=== PATIENT | female | born 1945 | race Caucasian/White ===

== ENCOUNTER 2017-01-04 14:08 | Emergency (ER) | payer MEDICARE, OTHER ==
--- NOTE | ~2017-01-04 | CR150 ---
[facility]. [facility] A Service of [facility] & [facility] RADIOLOGY TEXT RESULTS PATIENT: DIANA DIALLO LOCATION: SED : 45 UNIT #: [id number] AGE: [address]: Sharad Adorno MD SEX: F ORDER DR: [id number] [place] [id number] MR#: [id number] Acc #: [id number] NAME: DIANA DIALLO : 1945 SEX: F STUDY DATE/TIME: 01/04/2017 14:05 UNIT: SED ROOM: STUDY DESCRIPTION: CR Hip Min 2 Views Lt Attending Physician: Sharad Adorno M.D. Ordering Physician: Sharad Adorno M.D. Primary Care Physician: Primary Care Physician No MEDICAL IMAGING REPORT This report is preliminary unless electronic signature is present. EXAM AP pelvis and left hip dated 01/04/2017 COMPARISON 02/05/2015 HISTORY Fell 2 days ago at home. Pain entire left hip region. An AP view of the pelvis and oblique view left hip were obtained. Patient has had a bipolar left hip prosthesis placed. Bony elements are intact. Alignment of the prosthesis appears normal and there are no fractures. CONCLUSION Status post left total hip arthroplasty. No acute findings. Dictated by... Wilder Brunner M.D. THIS IS AN ELECTRONICALLY VERIFIED REPORT Wilder Brunner M.D. at 01/06/2017 2:19 PM GASTON/shruti TD: 01/04/2017 21:03 JOB #: [id number] MEDICAL IMAGING REPORT Page 1 of 1
[~2017-01-04 14:08] MED LIST: ALBUTEROL17 GM INH; AMBIEN10 MG; AMBIEN10 MG PO; AUGMENTIN875 M1 PO; BACTRIM DS TABL1 TAB PO; BACTROBAN15 GM TOP; CELEBREX PO; CELEXA PO; DESYREL150 M1 PO; DIAZEPAM10 MG PO; DICLOFENAC PO; EFFEXOR PO; FLONASE 0.05% N16 G1; FLONASE16 GM; KEFLEX PO; LISINOPRIL PO; NEURONTIN300 MG PO; PERCOCET 5-3251 TAB PO; PREDNISONE PO; SINGULAIR PO; ULTRA-LIGHT RO1 EACH MC; VALIUM2 M1; VISTARIL PO; ZESTORETIC 10-1 EAC1 PO; ZITHROMAX PO
== END 2017-01-04 15:11 | disposition home or self-care (01) ==
LOC: SED 14:08
DX: S76.012A Strain of muscle, fascia and tendon of left hip, initial encounter (principal); I10 Essential (primary) hypertension; F32.9 Major depressive disorder, single episode, unspecified; Z87.891 Personal history of nicotine dependence; W19.XXXA Unspecified fall, initial encounter; Y92.009 Unspecified place in unspecified non-institutional (private) residence as the place of occurrence of the external cause
CPT/HCPCS: 73502; 99283

== ENCOUNTER 2017-01-15 20:08 | Observation (INO) | payer MEDICARE, OTHER ==
--- NOTE | ~2017-01-15 | CO ---
Unit #: [id number] #: [id number] Patient: DIANA DIALLO [id number] [address] [place], [place] [address] [id number] MR#: [id number] NAME: DIANA DIALLO ROOM: 225 Age: 71 Sex: F Admission Date: 01/16/2017 : 1945 Attending Physician: Alton Millan M.D. Consultation Date: 01/16/2017 CONSULTATION REPORT REASON FOR CONSULTATION Abdominal pain. HISTORY OF PRESENT ILLNESS The patient is a 71-year-old woman, who presents to the emergency room at [facility] with a 1-week history of nausea, vomiting, diarrhea, and abdominal pain. The pain is diffuse mostly in the upper to mid abdomen. She does have some lower abdominal crampy pains as well. She has had loss of appetite. She states that she has no food intolerance. Prior to all this occurring, she could eat anything she wanted. The CT scan done at [facility] was benign other than showing some possible stranding around the gallbladder and edema. No gallstones were identified. REVIEW OF SYSTEMS A 10-point review is performed. This is negative other than what was already listed in the history of present illness. PAST MEDICAL HISTORY She has not had any previous abdominal surgeries. MEDICATIONS See her nurse's notes. ALLERGIES See her nurse's notes. SOCIAL HISTORY She denies alcohol or drug abuse. FAMILY HISTORY Noncontributory. PHYSICAL EXAMINATION GENERAL: She is alert, in no apparent distress. She states her abdominal pain has gone now and her diarrhea has resolved as well and she correlates this with being given IV fluids while she was in the emergency room. VITAL SIGNS: Temperature 98.7, respirations 20, pulse 84, blood pressure 134/86. HEENT: Pupils are equal and round. Extraocular motions are intact. NECK: Supple without adenopathy. HEART: Regular rate and rhythm. LUNGS: Clear to auscultation anteriorly. ABDOMEN: Soft, flat, benign, nontender, nondistended. There are no Unit #: [id number] #: [id number] Patient: DIANA DIALLO masses appreciable. EXTREMITIES: Negative clubbing, cyanosis, or edema. NEUROLOGIC: Negative focal sensory or motor deficits. SKIN: Warm and dry. DIAGNOSTIC STUDIES LABORATORY RESULTS: Significant for white blood cell count of 16.4 at [facility] and is down to 14.2 on day of consultation. Liver function tests are within normal limits except for alkaline phosphatase of 101. IMAGING STUDIES: CT scan as noted above. ASSESSMENT AND PLAN The patient with nausea, vomiting, abdominal pain, and diarrhea likely secondary to gastroenteritis. She is to have ultrasound of her gallbladder done today. If there is no evidence of inflammation and no gallstones, we will try advancing her diet. If she tolerates this, I think it would be okay to discharge her home. Dictated by... Alton Millan M.D. VICKIE/erna TD: 01/16/2017 22:54 JOB #: [id number] CONSULTATION REPORT Page 1 of 1 X Alton Millan CONSULTATION REPORT
--- NOTE | ~2017-01-15 | CT4 ---
[facility] A Service of [facility] RADIOLOGY TEXT RESULTS PATIENT: DIANA DIALLO LOCATION: [facility] 225-01 : 45 UNIT #: [id number] AGE: [address]: Alton Millan SEX: F ORDER DR: [id number] [address] [address] [id number] MR#: [id number] Acc #: [id number] NAME: DIANA DIALLO : 1945 SEX: F STUDY DATE/TIME: 01/15/2017 22:32 UNIT: SED ROOM: STUDY DESCRIPTION: CT Abd and Pelv Wo Cont Attending Physician: Piyush Reed M.D. Ordering Physician: Piyush Reed M.D. Primary Care Physician: No Primary Care Physician MEDICAL IMAGING REPORT This report is preliminary unless electronic signature is present. EXAM CT of abdomen and pelvis without contrast. HISTORY Nausea, vomiting, and diarrhea for 1 week. Abdomen pain. TECHNIQUE NOTE: This CT exam was performed with one or more of the following radiation dose reduction techniques: automatic exposure control, adjustment of mA and/or kV according to patient size, and iterative reconstruction. FINDINGS CT abdomen and pelvis was performed without contrast. CT ABDOMEN: There is mild fat stranding along the posterior margin of the gallbladder, and there is questionable borderline gallbladder wall thickening. Consider further evaluation with gallbladder ultrasound. No gallbladder distension. No biliary dilatation. The liver, spleen, pancreas, and adrenal glands are normal. Incidental small cyst in the upper pole of the left kidney. No renal calculi or perinephric stranding. Moderate amount of stool in the colon. No small bowel dilatation. Normal caliber abdominal aorta. CT PELVIS: Moderate sigmoid diverticulosis. No diverticulitis. Hysterectomy. Left hip prosthesis. Urinary bladder is normal. IMPRESSION 1. Mild nonspecific fat stranding along the posterior margin of the gallbladder and questionable gallbladder wall thickening but no gallbladder distension or biliary dilatation. Consider further evaluation with gallbladder ultrasound. 2. Moderate amount of stool throughout the colon. [facility] A Service of [facility] RADIOLOGY TEXT RESULTS PATIENT: DIANA DIALLO LOCATION: [facility] 225-01 : 45 UNIT #: [id number] AGE: [address]: Alton Millan SEX: F ORDER DR: 3. No free fluid in the abdomen or pelvis. No bowel obstruction or urinary obstruction. Dictated by... Eddie Ramirez M.D. THIS IS AN ELECTRONICALLY VERIFIED REPORT Eddie Ramirez M.D. at 01/16/2017 3:26 PM RIGO/kamaljit TD: 01/15/2017 23:30 JOB #: [id number] MEDICAL IMAGING REPORT Page 1 of 1
--- NOTE | ~2017-01-15 | US67 ---
[facility] A Service of [facility] & [facility] RADIOLOGY TEXT RESULTS PATIENT: DIANA DIALLO LOCATION: C2A : 45 UNIT #: [id number] AGE: [address]: Alton Millan SEX: F ORDER DR: [id number] [place] [id number] [facility]. [place], [place] [address] [id number] MR#: [id number] Acc #: [id number] NAME: DIANA DIALLO : 1945 SEX: F STUDY DATE/TIME: 01/16/2017 8:55 UNIT: C2A ROOM: [facility] STUDY DESCRIPTION: US Gallbladder Attending Physician: Alton Millan M.D. Ordering Physician: Alton iMllan M.D. Primary Care Physician: Primary Care Physician No MEDICAL IMAGING REPORT This report is preliminary unless electronic signature is present EXAM Right upper quadrant ultrasound. INDICATIONS Mid abdominal pain for the past few weeks. PROCEDURE Doherty scale and Doppler imaging right upper quadrant of the abdomen. COMPARISON None. FINDINGS Visualized portions of pancreas unremarkable. Liver measures 11.3 cm. Unremarkable. Right kidney measures 9.9 cm. Common duct measures 5 mm. Unremarkable gallbladder. IMPRESSION Negative right upper quadrant ultrasound. Dictated by... Mark Maravilla M.D. THIS IS AN ELECTRONICALLY VERIFIED REPORT Mark Maravilla M.D. at 01/17/2017 9:42 AM Brice TD: 01/16/2017 10:39 JOB #: [id number] MEDICAL IMAGING REPORT Page 1 of 1 COPY
[2017-01-15 20:26] LABS: URINE SOURCE CLEAN CATCH
[2017-01-15 20:28] LABS: BASOPHIL% 0.2 % (0-2.5); EOSINOPHIL% 0.2 % (0.0-7.0); HEMATOCRIT 38.4 % (35.0-45.0); HEMOGLOBIN 13.1 gm/dL (12.0-16.0); LYMPHOCYTE# 2.5 X10e3 (1.0-3.5); LYMPHOCYTE% 15.1 % (17.0-45.0); MEAN CELL VOLUME 90.1 FL (83-96); MEAN CORPUSCULAR HEMOGLOBIN 30.7 PG (28-34); MEAN CORPUSCULAR HGB CONC 34.1 g/dL (30-36); MEAN PLATELET VOLUME 7.9 FL (6.5-11.5); MONOCYTE# 1.3 X10e3 (0-1.0); MONOCYTE% 7.8 % (3.0-12.0); NEUTROPHIL# 12.6 X10e3 (1.5-7.1); NEUTROPHIL% 76.7 % (40-75); PLATELET COUNT 393 X10e3 (140-420); RED BLOOD COUNT 4.27 X10e (3.90-5.30); RED CELL DISTRIBUTION WIDTH 13.5 % (11.0-15.5); WHITE BLOOD COUNT 16.4 X10e3 (4.0-10.5)
[2017-01-15 20:29] LABS: URINE APPEARANCE CLEAR; URINE BILIRUBIN NEG (NEG); URINE BLOOD TRACE-INTACT (NEG); URINE COLOR YELLOW; URINE GLUCOSE NEG (NORM); URINE KETONE NEG (NEG); URINE LEUKOCYTE ESTERASE NEG (NEG); URINE NITRATE NEG (NEG); URINE PH 5.5 (5-8); URINE PROTEIN NEG (NEG); URINE SPECIFIC GRAVITY 1.015 (1.003-1.035); URINE UROBILINOGEN 0.2 MG/DL (NORM)
[2017-01-15 20:29] LABS: DIFF IND NO
[2017-01-15 20:30] LABS: MICRO INDICATED? YES
[2017-01-15 20:31] LABS: ALBUMIN SERUM 4.1 g/dL (3.5-5.0); BILIRUBIN, DIRECT 0.1 mg/dL (0.0-0.2); BILIRUBIN,INDIRECT 0.3 mg/dL (0.0-0.9); BILIRUBIN,TOTAL 0.4 mg/dL (0.2-2.0); BUN/CREATININE RATIO 18.66; CALCIUM SERUM 8.9 mg/dL (8.4-10.2); CREATININE SERUM 1.5 mg/dL (0.6-1.4); GLOM FILT RATE Estimated 34.7 mL/min (>60); POTASSIUM 3.5 mmol/L (3.5-5.1); PROTEIN TOTAL SERUM 7.8 g/dL (6.0-8.3)
[2017-01-15 20:36] LABS: URINE BACTERIA NEG (NEG); URINE HYALINE CAST 0-2 /[HPF]; URINE MUCUS PRESENT; URINE SQUAMOUS EPITHELIAL CELL FEW /[HPF]
[2017-01-16 04:46] LABS: BASOPHIL# 0.1 X10e3 (0-0.3); BASOPHIL% 0.6 % (0-2.5); EOSINOPHIL# 0.1 X10e3 (0-0.7); EOSINOPHIL% 0.6 % (0.0-7.0); HEMATOCRIT 34.7 % (35.0-45.0); HEMOGLOBIN 11.5 gm/dL (12.0-16.0); LYMPHOCYTE# 2.5 X10e3 (1.0-3.5); LYMPHOCYTE% 17.3 % (17.0-45.0); MEAN CELL VOLUME 90.6 FL (83-96); MEAN CORPUSCULAR HEMOGLOBIN 29.9 PG (28-34); MEAN PLATELET VOLUME 7.5 FL (6.5-11.5); MONOCYTE# 1.1 X10e3 (0-1.0); MONOCYTE% 7.8 % (3.0-12.0); NEUTROPHIL# 10.4 X10e3 (1.5-7.1); NEUTROPHIL% 73.7 % (40-75); PLATELET COUNT 317 X10e3 (140-420); RED BLOOD COUNT 3.83 X10e (3.90-5.30); RED CELL DISTRIBUTION WIDTH 13.6 % (11.0-15.5); WHITE BLOOD COUNT 14.2 X10e3 (4.0-10.5)
[2017-01-16 04:48] LABS: DIFF IND NO
[2017-01-16 05:06] LABS: ALBUMIN SERUM 3.4 g/dL (3.5-5.0); BILIRUBIN,TOTAL 1.1 mg/dL (0.2-2.0); BUN/CREATININE RATIO 16.15; CALCIUM SERUM 8.2 mg/dL (8.4-10.2); CREATININE SERUM 1.3 mg/dL (0.6-1.4); GLOM FILT RATE Estimated 41.2 mL/min (>60); POTASSIUM 3.5 mmol/L (3.5-5.1); PROTEIN TOTAL SERUM 6.4 g/dL (6.0-8.3)
== END 2017-01-16 14:23 | disposition home or self-care (01) ==
LOC: SED 20:08 → SEDOF 01-16 00:25 → C2A 01-16 02:18
PROVIDERS: Emergency Medicine; Surgery
DX: R11.2 Nausea with vomiting, unspecified (principal); R10.9 Unspecified abdominal pain; R19.7 Diarrhea, unspecified; K57.30 Diverticulosis of large intestine without perforation or abscess without bleeding
CPT/HCPCS: 36415; 74176; 76705; 80048; 80053; 80076; 81003; 83690; 85025; 96361; 96374; 96375; 99285; C9113; G0378; J2405

== ENCOUNTER 2017-01-23 20:28 | Emergency (ER) | payer MEDICARE, OTHER ==
--- NOTE | ~2017-01-23 | EKG ---
PATIENT: DIANA DIALLO UNIT #: [id number] Ventricular Rate: 99 BPM Atrial Rate: 99 BPM P-R Interval: 110 ms QRS Duration: 72 ms Q-T Interval: 348 ms QTC Calculation(Bezet): 446 ms P [place]: 83 degrees Calculated R [place]: 69 degrees Calculated T [place]: 71 degrees Diagnosis Line: Sinus rhythm with short IA Diagnosis Line: Otherwise normal ECG Diagnosis Line: When compared with ECG of 20-SEP-2015 16:00, Diagnosis Line: No significant change was found Diagnosis Line: Confirmed by AVANI ERIC MD ([id number]) on 01/26/2017 Diagnosis Line: 9:35:21 AM INTERPRETING MD: HERNESTO CARSON
[2017-01-23 20:24] LABS: BASOPHIL# 0.4 X10e3 (0-0.3); BASOPHIL% 2.5 % (0-2.5); EOSINOPHIL# 0.2 X10e3 (0-0.7); EOSINOPHIL% 1.2 % (0.0-7.0); HEMATOCRIT 39.3 % (35.0-45.0); LYMPHOCYTE# 0.9 X10e3 (1.0-3.5); LYMPHOCYTE% 5.6 % (17.0-45.0); MEAN CELL VOLUME 90.4 FL (83-96); MEAN CORPUSCULAR HEMOGLOBIN 29.8 PG (28-34); MEAN PLATELET VOLUME 7.1 FL (6.5-11.5); MONOCYTE# 0.9 X10e3 (0-1.0); MONOCYTE% 5.7 % (3.0-12.0); NEUTROPHIL# 13.9 X10e3 (1.5-7.1); PLATELET COUNT 479 X10e3 (140-420); RED BLOOD COUNT 4.34 X10e (3.90-5.30); RED CELL DISTRIBUTION WIDTH 13.3 % (11.0-15.5); WHITE BLOOD COUNT 16.3 X10e3 (4.0-10.5)
[2017-01-23 20:27] LABS: DIFF IND NO
[2017-01-23 20:38] LABS: ALBUMIN SERUM 3.9 g/dL (3.5-5.0); BILIRUBIN, DIRECT 0.1 mg/dL (0.0-0.2); BILIRUBIN,INDIRECT 0.4 mg/dL (0.0-0.9); BILIRUBIN,TOTAL 0.5 mg/dL (0.2-2.0); BUN/CREATININE RATIO 14.11; CALCIUM SERUM 8.6 mg/dL (8.4-10.2); CREATININE SERUM 1.7 mg/dL (0.6-1.4); GLOM FILT RATE Estimated 29.8 mL/min (>60); POTASSIUM 3.5 mmol/L (3.5-5.1); PROTEIN TOTAL SERUM 7.6 g/dL (6.0-8.3)
[2017-01-23 20:38] LABS: POC - CKMB <1.0 ng/mL (0.0-7.9); POC - TROPONIN <0.05 ng/mL (<=0.05)
[2017-01-23] MEDS ORDERED: PRILOSEC PO (22:23)
[2017-01-23] MEDS ORDERED: ZOFRAN ODT4 M1 PO (22:24)
== END 2017-01-23 22:24 | disposition home or self-care (01) ==
LOC: SED 20:28
PROVIDERS: Nurse Practitioner
DX: K21.9 Gastro-esophageal reflux disease without esophagitis (principal); I10 Essential (primary) hypertension; F32.9 Major depressive disorder, single episode, unspecified; Z90.710 Acquired absence of both cervix and uterus; Z88.1 Allergy status to other antibiotic agents
CPT/HCPCS: 36415; 80048; 80076; 82553; 83690; 84484; 85025; 93005; 96361; 96374; 99284; J2405